=== PATIENT | male | born 1935 | race Caucasian/White ===

== ENCOUNTER 2020-01-26 07:43 | Emergency (ER) | payer MEDICARE, OTHER, SELFPAY ==
--- NOTE | ~2020-01-26 | XR_ITS ---
EXAMINATION: XR chest 1V portable EXAM DATE: 01/26/2020 08:39 INDICATION: Transient alteration of awareness. TECHNIQUE: Portable AP frontal chest x-ray was obtained. Comparison is made to prior examination from 02/04/2018. FINDINGS: There is a dual lead pacemaker/AICD seen with leads projecting over the expected locations of the right atrial appendage and right ventricle. The lungs are clear. There are no pleural effusio ns. The cardiomediastinal silhouette is within normal limits. There is no pneumothorax suspected. The bones and soft tissues are unremarkable. IMPRESSION: No acute cardiopulmonary findings. Reviewed, dictated and finalized at location A. CLE CONTROLS ENGINEER
--- NOTE | ~2020-01-26 | CT_ITS ---
EXAMINATION: CT brain wo con EXAM DATE: 01/26/2020 08:55 INDICATION: Unresponsive. TECHNIQUE: Spiral CT of the head was performed without contrast. Axial, coronal and sagittal images were reviewed. The dose-length product (DLP) for this examination was 681.00 mGy-cm. The exposure w as tailored according to patient size, and iterative reconstruction (ASIR) was used as additional dos e reduction technique. Comparison is made to prior examination from 02/04/2018. FINDINGS: There is no acute intraparenchymal hemorrhage. No evidence of intraparenchymal brain mass lesion. No evidence of acute infarction. Please note that initial head CT has limited sensitivity f or small or acute infarctions. There is mild periventricular and subcortical hypodensity, nonspecific but probably related to small vessel ischemic disease. There is mild prominence of the sulci and v entricles related to cerebral atrophy. There is intracranial carotid arteriosclerosis. There are n o extra-axial collections. There is no mass effect or midline shift. Patient has had left-sided ocu lar lens surgery. Soft tissue is unremarkable. The visualized sinuses and mastoid air cells are we ll aerated. IMPRESSION: 1. No acute intracranial findings. 2. Chronic age related findings. Reviewed, dictated and finalized at location A. HER OF THE HEARING IMPAIRED
[2020-01-26 07:42] VITALS: BP 148/76; PULSE 88; RESP 16; TEMP 36.3; O2SAT 100
--- NOTE | 2020-01-26 07:46 | ECG_ITS ---
Measurements Intervals [place] Rate: 83 P: 68 MT: 184 QRS: 71 QRSD: 133 T: -15 QT: 391 QTc: 461 Interpretive Statements SINUS RHYTHM RIGHT BUNDLE BRANCH BLOCK BORDERLINE ST-T WAVE ABNORMALITY- INFERIOR LEADS BASELINE ARTIFACT- I, II, III, AVR, AVL, AVF, V1-V3 ABNORMAL ECG Electronically Signed On 01-26-2020 17:08:10 SHOE DRESSER by Chris Syed D.O.
[2020-01-26 07:51] VITALS: PULSE 87
--- NOTE | 2020-01-26 08:03 | ED.GENADULT ---
HPI - General Adult General Chief complaint: Unspecified Stated complaint: had an unresponsive episode Time Seen by Provider: 01/26/20 07:44 Source: EMS Mode of arrival: EMS History of Present Illness HPI narrative: 84 years old white male came from a residential because of an episode of unresponsiveness, history of dementia, currently back is normal mental baseline. History of recurrent urinary tract infection Currently patient denying any complaints just want to eat and drink. Related Data Home Medications Medication Instructions Recorded Confirmed acetaminophen 1,000 mg PO Q6H PRN 01/26/20 calcium carbonate-vitamin D3 1 tablet PO BID 01/26/20 [Oyster Shell + D3] carbidopa-levodopa 0.5 tablet PO QID 01/26/20 cholecalciferol (vitamin D3) 10 mcg PO DAILY 01/26/20 donepezil 5 mg PO HS 01/26/20 latanoprost 1 drp OPHTHALMIC (EYE) DAILY 01/26/20 loperamide 2 mg PO QID PRN 01/26/20 melatonin 5 mg PO HS 01/26/20 montelukast 10 mg PO HS 01/26/20 nitrofurantoin mg PO 01/26/20 omeprazole 20 mg PO DAILY 01/26/20 quetiapine 12.5 mg PO BID PRN 01/26/20 quetiapine 50 mg PO HS 01/26/20 vitamin B complex [B 1 tablet PO DAILY 01/26/20 Complex-Vitamin B12] Allergies Allergy/AdvReac Type Severity Reaction Status Date / Time phenytoin Allergy Severe Unknown Verified 01/26/20 07:50 prochlorperazine Allergy Severe HALLUCINATIONS, Verified 02/04/18 01:34 DIZZINESS, CHEST PRESSURE, SLURRED SPEECH, doxycycline Allergy Mild Unknown Verified 01/26/20 07:50 diclofenac Allergy Unknown Unknown Verified 01/26/20 07:50 levofloxacin Allergy Unknown Unknown Verified 01/26/20 07:50 amoxicillin [From Augmentin] Allergy Unknown Verified 01/26/20 07:50 carbamazepine Allergy Unknown Verified 01/26/20 07:50 clavulanic acid Allergy Unknown Verified 01/26/20 07:50 [From Augmentin] gabapentin Allergy Unknown Verified 01/26/20 07:50 levetiracetam Allergy Unknown Verified 01/26/20 07:50 onion Allergy Unknown Verified 01/26/20 07:50 lorazepam AdvReac Mild CHEST Verified 02/04/18 01:34 PRESSURE, DIZZINESS, HALLUCINATIONS metoclopramide AdvReac Mild CHEST Verified 02/04/18 01:34 PRESSURE, DIZZINESS, HALLUCINATIONS POTASSIUM CLAVULANATE Allergy Mild Unknown Uncoded 01/26/20 07:51 AMOXICILLIN TRIHYDRATE Allergy Unknown Unknown Uncoded 01/26/20 07:51 PROCHLORPERAZINE EDISYLATE Allergy Unknown Unknown Uncoded 01/26/20 07:51 Review of Systems Review of Systems: ROS unobtainable: Yes unobtainable due to mental status Exam Narrative: Exam Narrative: General appearance: Well-developed, well-nourished Skin: Normal color Head: Normocephalic, nontraumatic Eyes: Clear conjunctiva ENT: Oropharynx normal, ears normal, nose normal Neck: Supple, nontender Chest and respiratory: Airway patent, no respiratory distress, no accessory muscle use Heart: Regular rate/rhythm Abdomen: Soft, nontender, no organomegaly, quiet bowel sounds Vascular: Normal peripheral pulses, normal capillary refill. Musculoskeletal: Normal range of motion, nontender back Neurologic: Alert and oriented to his name and the year only. Course Course Emergency Course: Stable Reevaluation(s) Reevaluation #1: Patient still asymptomatic, does not look in pain or distress, Patient's daughter told us that she preferred patient to go home if there is nothing acute in his blood work-up today because usually get delirium in the hospital. Date: 01/26/20 Time: 09:50 Vital Signs Vital signs: Vital Signs Temperature 36.3 C L 01/26/20 07:42 Pulse Rate 88 01/26/20 07:42 Respiratory Rate 16 01/26/20 07:42 Blood Pressure 148/76 H 01/26/20 07:4
[2020-01-26 08:07] LABS: Alveolar/Arterial O2 Gradient 5.7 mmHg; Base Excess ABG 1.1 mEq/l (+/-2.0); Fractional Inspired Oxygen 21 %; HCO3 ABG 25.8 mEq/l (22.0-26.0); Oxygen Content ABG 18.9 %vol (16.0-22.0); Oxygen Saturation ABG 97.4 % (95.0-100.0); Oxyhemoglobin 96.3 % THb (90.0-100.0); PCO2 ABG 40.9 mmHg (35.0-45.0); PO2 ABG 95.1 mmHg (80.0-100.0); PO2 FiO2 Ratio Arterial Blood 4.53 %; Total Hemoglobin 13.9 g/dL (12.0-18.0); pH ABG 7.417 (7.350-7.450)
[2020-01-26 08:08] LABS: Device ROOM AIR; Site Drawn RIGHT BRACHIAL
[2020-01-26 08:20] VITALS: BP 117/75; PULSE 83; RESP 14; O2SAT 100
[2020-01-26 08:40] LABS: Add Urine Microscopic? YES; Appearance Urine Cloudy (Clear); Bacteria Urine Trace /hpf; Bilirubin Urine Negative (Negative); Blood Urine Negative (Negative); Color Urine Yellow (Yellow); Glucose Urine UA Negative (Negative); Ketones Urine Trace mg/dL (Negative); Leukocyte Esterase Ur Trace LEU/UL (Negative); Nitrate Urine Negative (Negative); Protein Urine 1+ mg/dL (Negative); Specific Grav Ur 1.016 (1.001-1.035); WBC Urine 21-30 /hpf
[2020-01-26 08:43] LABS: Alanine Aminotransferase 7 U/L (4-50); Albumin Level 3.8 g/dL (3.5-5.1); Alkaline Phosphatase 71 U/L (38-126); Anion Gap 6 mmol/L (8-16); Aspartate Amino Transferase 26 U/L (17-59); Bilirubin,Total 0.9 mg/dL (0.2-1.3); Blood Urea Nitrogen 16 mg/dL (9-20); Calcium 9.3 mg/dL (8.4-10.2); Carbon Dioxide 29 mmol/L (22-30); Chloride 104 mmol/L (98-107); Estimated CRCL calculation 45 ml/min; Estimated Glomerular Filt Rate > 60; Glucose 92 mg/dL (75-110); Sodium 139 mmol/L (137-145)
[2020-01-26 08:49] LABS: INR 0.9
[2020-01-26 08:50] LABS: Partial Thromboplastin Time 20.2 SECONDS (22.3-36.8)
[2020-01-26 08:54] LABS: Troponin I 0.018 ng/mL (0.000-0.034)
[2020-01-26 09:01] VITALS: BP 108/70; PULSE 90; RESP 14; O2SAT 99
[2020-01-26 09:08] LABS: Basophils Percent Auto 0.5 % (0.2-1.2); Eosinophils Absolute Auto 0.1 K/mm3 (0-0.3); Eosinophils Percent Auto 1.8 % (0-4.4); Hematocrit 40.8 % (42.0-52.0); Hemoglobin 13.3 g/dL (14.0-18.0); Immature Granulocyte Absolute 0.02 K/mm3 (0.00-0.031); Immature Granulocyte Percent A 0.3 % (0-0.5); Lymphocytes Percent Auto 17.8 % (18.3-44.2); Mean Corpuscular HGB Conc 32.6 g/dl (32-36); Mean Corpuscular Hemoglobin 31.2 pg (26-34); Mean Corpuscular Volume 95.8 fl (80-100); Monocytes Absolute Auto 0.4 K/mm3 (0.1-0.6); Monocytes Percent Auto 6.8 % (2.6-8.5); Neutrophils Absolute Auto 4.5 K/mm3 (1.3-6.7); Neutrophils Percent Auto 72.8 % (45.5-73.1); Platelet Count Result 215 k/mm3 (150-375); Red Blood Count 4.26 M/mm3 (4.6-6.20); Red Cell Distribution Width 14.3 % (11.5-14.5); White Blood Count 6.2 K/mm3 (4.5-10.0)
[2020-01-26 09:45] VITALS: BP 108/70; PULSE 83; RESP 18; O2SAT 100
--- NOTE | 2020-01-26 09:48 | PC.NURSE ---
contacted [facility] about transferring patient home. eta [phone]
--- NOTE | 2020-01-26 10:09 | ED.GENADULT ---
HPI - General Adult General Chief complaint: Unspecified Stated complaint: had an unresponsive episode Time Seen by Provider: 01/26/20 07:44 Source: EMS Mode of arrival: EMS Related Data Home Medications Medication Instructions Recorded Confirmed acetaminophen 1,000 mg PO Q6H PRN 01/26/20 calcium carbonate-vitamin D3 1 tablet PO BID 01/26/20 [Oyster Shell + D3] carbidopa-levodopa 0.5 tablet PO QID 01/26/20 cholecalciferol (vitamin D3) 10 mcg PO DAILY 01/26/20 donepezil 5 mg PO HS 01/26/20 latanoprost 1 drp OPHTHALMIC (EYE) DAILY 01/26/20 loperamide 2 mg PO QID PRN 01/26/20 melatonin 5 mg PO HS 01/26/20 montelukast 10 mg PO HS 01/26/20 nitrofurantoin mg PO 01/26/20 omeprazole 20 mg PO DAILY 01/26/20 quetiapine 12.5 mg PO BID PRN 01/26/20 quetiapine 50 mg PO HS 01/26/20 vitamin B complex [B 1 tablet PO DAILY 01/26/20 Complex-Vitamin B12] Allergies Allergy/AdvReac Type Severity Reaction Status Date / Time phenytoin Allergy Severe Unknown Verified 01/26/20 07:50 prochlorperazine Allergy Severe HALLUCINATIONS, Verified 02/04/18 01:34 DIZZINESS, CHEST PRESSURE, SLURRED SPEECH, doxycycline Allergy Mild Unknown Verified 01/26/20 07:50 diclofenac Allergy Unknown Unknown Verified 01/26/20 07:50 levofloxacin Allergy Unknown Unknown Verified 01/26/20 07:50 amoxicillin [From Augmentin] Allergy Unknown Verified 01/26/20 07:50 carbamazepine Allergy Unknown Verified 01/26/20 07:50 clavulanic acid Allergy Unknown Verified 01/26/20 07:50 [From Augmentin] gabapentin Allergy Unknown Verified 01/26/20 07:50 levetiracetam Allergy Unknown Verified 01/26/20 07:50 onion Allergy Unknown Verified 01/26/20 07:50 lorazepam AdvReac Mild CHEST Verified 02/04/18 01:34 PRESSURE, DIZZINESS, HALLUCINATIONS metoclopramide AdvReac Mild CHEST Verified 02/04/18 01:34 PRESSURE, DIZZINESS, HALLUCINATIONS Course Course Emergency Course: Patient is already on Macrobid for urinary tract infection Vital Signs Vital signs: Vital Signs Temperature 36.3 C L 01/26/20 07:42 Pulse Rate 88 01/26/20 07:42 Respiratory Rate 16 01/26/20 07:42 Blood Pressure 148/76 H 01/26/20 07:42 Pulse Oximetry 100 01/26/20 07:42 Temperature 36.3 C L 01/26/20 07:42 Pulse Rate 83 01/26/20 09:45 Respiratory Rate 18 01/26/20 09:45 Blood Pressure 108/70 01/26/20 09:45 Pulse Oximetry 100 01/26/20 09:45 Medical Decision Making Vital Signs Vital Signs: Vital Signs Temperature 36.3 C L 01/26/20 07:42 Pulse Rate 88 01/26/20 07:42 Respiratory Rate 16 01/26/20 07:42 Blood Pressure 148/76 H 01/26/20 07:42 Pulse Oximetry 100 01/26/20 07:42 Temperature 36.3 C L 01/26/20 07:42 Pulse Rate 83 01/26/20 09:45 Respiratory Rate 18 01/26/20 09:45 Blood Pressure 108/70 01/26/20 09:45 Pulse Oximetry 100 01/26/20 09:45 Lab Data Result diagrams: 01/26/20 08:59 01/26/20 08:21 Labs: Lab Results 01/26/20 01/26/20 01/26/20 Range/Units 08:21 08:22 08:22 WBC (4.5-10.0) K/mm3 RBC (4.6-6.20) M/mm3 Hgb (14.0-18.0) g/dL Hct (42.0-52.0) % MCV (80-100) fl MCH (26-34) pg MCHC (32-36) g/dl RDW (11.5-14.5) % Plt Count (150-375) k/mm3 MPV (7.4-10.4) fl Immature Gran % (Auto) (0-0.5) % Neut % (Auto) (45.5-73.1) % Lymph % (Auto) (18.3-44.2) % [place] % (Auto) (2.6-8.5) % Eos % (Auto) (0-4.4) % Baso % (Auto) (0.2-1.2) % Lymph # (Auto) (0.9-3.2) K/mm3 [place] # (Auto) (0.1-0.6) K/mm3 Eos # (Auto) (0-0.3) K/mm3 Baso # (Auto) (0.0-0.1) K/mm3 Abs Immat Gran (auto) (0.00-0.031) K/mm3 Absolute Neuts (auto) (1.3-6.7) K/mm3 Absolute Nucleated RBC (0.0-0.012) K/mm3 Nucleated RBC % (0.0-0.2) % PT 13.0 (11.1-14.7) Seconds INR 0.9 APTT 20.2 L (22.3-36.8) SECONDS Sodium 139 (137-145) mmol/L
--- NOTE | 2020-01-26 10:14 | PC.NURSE ---
[facility] has arrived
--- NOTE | 2020-01-26 10:23 | PC.NURSE ---
Patient transferred to [facility] via [facility] at this time.
== END 2020-01-26 10:23 ==
PROVIDERS: Emergency Provider Emergency Medicine; PCP Family Medicine Adolescent Medicine
DX: N39.0 Urinary tract infection, site not specified (principal); F03.90 Unspecified dementia, unspecified severity, without behavioral disturbance, psychotic disturbance, mood disturbance, and anxiety; I45.10 Unspecified right bundle-branch block; R94.31 Abnormal electrocardiogram [ECG] [EKG]
CPT/HCPCS: 36415; 36600; 51701; 70450; 71045; 80053; 81001; 82805; 84484; 85025; 85610; 85730; 87040; 87086; 93005; 99284

== ENCOUNTER 2020-02-11 03:34 | Emergency (ER) | payer MEDICARE, OTHER, SELFPAY ==
[2020-02-11] VITALS (14 sets, daily range): BP systolic 109–155; BP diastolic 58–86; PULSE 78–98; RESP 14–98; TEMP 36.4; O2SAT 97–100
--- NOTE | ~2020-02-11 | XR_ITS ---
EXAMINATION: XR hip LT 2V w AP pelvis DATE: 02/11/2020 05:12 INDICATION: Left hip pain post fall TECHNIQUE: Anteroposterior view of the pelvis and anteroposterior and frog leg lateral views of the l eft hip were obtained. COMPARISON: None. FINDINGS: Alignment is normal. No fracture. 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 IMPRESSION: 1. 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 No acute osseous abnormality. Reviewed, dictated and finalized at location A. OFFICE MARKUP CLERK IMPRESSION: 1. 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 No acute osseous abnormalit y.
--- NOTE | ~2020-02-11 | XR_ITS ---
EXAMINATION: XR elbow LT min 3V DATE: 02/11/2020 05:12 INDICATION: Left elbow pain post fall TECHNIQUE: Anteroposterior, two oblique and lateral views of the left elbow were obtained. COMPARISON: 02/04/2018 FINDINGS: Alignment is normal. No fracture or joint effusion. Moderate left elbow osteoarthritis. Soft tissues are unremarkable. IMPRESSION: 1. 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 No acute osseous adenopathy. Reviewed, dictated and finalized at location A. UCT MANAGEMENT INTERN
--- NOTE | ~2020-02-11 | CT_ITS ---
EXAMINATION: CT brain wo con DATE: 02/11/2020 04:05 INDICATION: Syncope. TECHNIQUE: Computed tomography (CT) of the head was performed without intravenous contrast. The mA wa s adjusted according to patient size. Iterative reconstruction technique was employed. The dose-lengt h product was 605.33 mGy-cm. COMPARISON: Head CT 01/26/2020 FINDINGS: There is diffuse brain volume loss. There are scattered areas of low attenuation in the cer ebral white matter, which is within normal limits for the patient's age. There is no intracranial hem orrhage, acute infarction, or abnormal intracranial mass lesion. The ventricles are normal in size. T he paranasal sinuses are clear. There are likely changes of left ocular lens replacement surgery. The re are trace bilateral mastoid effusions. IMPRESSION: 1. Normal aging brain. Reviewed, dictated and finalized at location B. TOR IMPRESSION: 1. Normal aging brain.
--- NOTE | ~2020-02-11 | XR_ITS ---
EXAMINATION: XR chest 1V DATE: 02/11/2020 05:12 INDICATION: Fall with syncopal episode. TECHNIQUE: frontal view of the chest was obtained. COMPARISON: Chest radiograph dated 01/26/2020 FINDINGS: Skinfold projects over the lateral left midlung zone. No airspace opacities, pulmonary edema, pleural effusion or pneumothorax. The cardiomediastinal silhouette is normal. Dual lead pacemaker seen with leads projecting over the expected locations of the right atrium and right ventricle. IMPRESSION: 1. No acute cardiopulmonary disease. Reviewed, dictated and finalized at location A. NEER SPECIALIST
--- NOTE | ~2020-02-11 | XR_ITS ---
EXAMINATION: XR shoulder LT min 2V DATE: 02/11/2020 05:12 INDICATION: Left shoulder pain post fall TECHNIQUE: AP internally and externally rotated, AP oblique externally rotated, axillary and transsca pular Y views of the left shoulder were obtained. COMPARISON: None FINDINGS: Normal alignment. No fracture.Mild glenohumeral and acromioclavicular osteoarthritis. Soft tissues are unremarkable. Visualized portions of the left lung are clear. Partially visualized dual lead card iac pacemaker projects over the anterior left chest. IMPRESSION: No acute osseous abnormality. Reviewed, dictated and finalized at location A. SUIT GLUER
--- NOTE | 2020-02-11 03:44 | ECG_ITS ---
Measurements Intervals [place] Rate: 87 P: 53 WA: 214 QRS: 77 QRSD: 142 T: 4 QT: 370 QTc: 446 Interpretive Statements SINUS RHYTHM WITH FIRST DEGREE AV BLOCK RIGHT BUNDLE BRANCH BLOCK BASELINE ARTIFACT- I, II, III, AVR, AVL, AVF, V2 ABNORMAL ECG Electronically Signed On 02-11-2020 6:45:18 BULK PLANT SUPERVISOR by Chris Syed D.O.
--- NOTE | 2020-02-11 03:56 | PC.NURSE ---
Pt. to CT
[2020-02-11] MEDS: SODIUM CHLORIDE 0.9% IV 1,000 ML 999 ML IV CONT ×2 (04:00→06:44)
[2020-02-11 04:13] LABS: Basophils Percent Auto 0.7 % (0.2-1.2); Eosinophils Absolute Auto 0.1 K/mm3 (0-0.3); Hematocrit 39.8 % (42.0-52.0); Hemoglobin 13.4 g/dL (14.0-18.0); Immature Granulocyte Absolute 0.02 K/mm3 (0.00-0.031); Immature Granulocyte Percent A 0.3 % (0-0.5); Lymphocytes Absolute Auto 1.46 K/mm3 (0.9-3.2); Lymphocytes Percent Auto 23.7 % (18.3-44.2); Mean Corpuscular HGB Conc 33.7 g/dl (32-36); Mean Corpuscular Hemoglobin 31.3 pg (26-34); Mean Platelet Volume 9.4 fl (7.4-10.4); Monocytes Absolute Auto 0.5 K/mm3 (0.1-0.6); Monocytes Percent Auto 7.8 % (2.6-8.5); Neutrophils Absolute Auto 4.1 K/mm3 (1.3-6.7); Neutrophils Percent Auto 66.5 % (45.5-73.1); Platelet Count Result 240 k/mm3 (150-375); Red Blood Count 4.28 M/mm3 (4.6-6.20); Red Cell Distribution Width 13.9 % (11.5-14.5); White Blood Count 6.2 K/mm3 (4.5-10.0)
[2020-02-11 04:16] LABS: Prothrombin Time 13.3 Seconds (11.1-14.7)
[2020-02-11 04:17] LABS: Partial Thromboplastin Time 29.9 SECONDS (22.3-36.8)
[2020-02-11 04:19] LABS: Alanine Aminotransferase 6 U/L (4-50); Albumin Level 3.7 g/dL (3.5-5.1); Alkaline Phosphatase 77 U/L (38-126); Anion Gap 6 mmol/L (8-16); Aspartate Amino Transferase 21 U/L (17-59); Bilirubin,Total 0.7 mg/dL (0.2-1.3); Blood Urea Nitrogen 17 mg/dL (9-20); Calcium 10.1 mg/dL (8.4-10.2); Carbon Dioxide 27 mmol/L (22-30); Chloride 103 mmol/L (98-107); Estimated CRCL calculation 40 ml/min; Estimated Glomerular Filt Rate > 60; Glucose 97 mg/dL (75-110); Sodium 136 mmol/L (137-145)
[2020-02-11 04:31] LABS: Troponin I 0.026 ng/mL (0.000-0.034)
[2020-02-11 04:55] LABS: Add Urine Microscopic? YES; Appearance Urine Clear (Clear); Bilirubin Urine Negative (Negative); Blood Urine Negative (Negative); Color Urine Yellow (Yellow); Glucose Urine UA Negative (Negative); Ketones Urine Trace mg/dL (Negative); Leukocyte Esterase Ur 1+ LEU/UL (Negative); Nitrate Urine Negative (Negative); Protein Urine Negative (Negative); Specific Grav Ur 1.016 (1.001-1.035); WBC Urine 51-75 /hpf
--- NOTE | 2020-02-11 06:13 | ED.SYNCOPE ---
HPI - Syncope General Chief Complaint: Syncope Stated Complaint: FALL/SYNCOPE Time Seen by Provider: 02/11/20 03:41 Source: patient and EMS Mode of arrival: EMS Limitations: dementia History of Present Illness HPI narrative: This patient is an 84 year old male with history of dementia, parkinson who presents from [facility] for evaluation of syncope vs fall. EMS states patient was witness to stand up and then fall foward. They states the DIPLOMA MAKER reported patient was talking and then stopped talking. He fell forward, and they believe he passed out. EMS states patient was able to speak once he was on the ground. Patient can not tell history of fall. He complained of left shoulder pain and left hip pain, but he states it has improved. He denies chest pain, sob, nausea, vomiting , dizziness or headache. Related Data Home Medications Medication Instructions Recorded Confirmed acetaminophen 1,000 mg PO Q6H PRN 01/26/20 calcium carbonate-vitamin D3 1 tablet PO BID 01/26/20 [Oyster Shell + D3] carbidopa-levodopa 0.5 tablet PO QID 01/26/20 cholecalciferol (vitamin D3) 10 mcg PO DAILY 01/26/20 donepezil 5 mg PO HS 01/26/20 latanoprost 1 drp OPHTHALMIC (EYE) DAILY 01/26/20 loperamide 2 mg PO QID PRN 01/26/20 melatonin 5 mg PO HS 01/26/20 montelukast 10 mg PO HS 01/26/20 nitrofurantoin mg PO 01/26/20 omeprazole 20 mg PO DAILY 01/26/20 quetiapine 12.5 mg PO BID PRN 01/26/20 quetiapine 50 mg PO HS 01/26/20 vitamin B complex [B 1 tablet PO DAILY 01/26/20 Complex-Vitamin B12] Allergies Allergy/AdvReac Type Severity Reaction Status Date / Time phenytoin Allergy Severe Unknown Verified 02/11/20 03:40 prochlorperazine Allergy Severe HALLUCINATIONS, Verified 02/11/20 03:40 DIZZINESS, CHEST PRESSURE, SLURRED SPEECH, doxycycline Allergy Mild Unknown Verified 02/11/20 03:40 diclofenac Allergy Unknown Unknown Verified 02/11/20 03:40 levofloxacin Allergy Unknown Unknown Verified 02/11/20 03:40 amoxicillin [From Augmentin] Allergy Unknown Verified 02/11/20 03:40 carbamazepine Allergy Unknown Verified 02/11/20 03:40 clavulanic acid Allergy Unknown Verified 02/11/20 03:40 [From Augmentin] gabapentin Allergy Unknown Verified 02/11/20 03:40 levetiracetam Allergy Unknown Verified 02/11/20 03:40 onion Allergy Unknown Verified 02/11/20 03:40 lorazepam AdvReac Mild CHEST Verified 02/11/20 03:40 PRESSURE, DIZZINESS, HALLUCINATIONS metoclopramide AdvReac Mild CHEST Verified 02/11/20 03:40 PRESSURE, DIZZINESS, HALLUCINATIONS Review of Systems Review of Systems: All systems reviewed & are unremarkable except as noted in HPI and below Constitutional: Constitutional: Denies chills and Denies fever(s) Cardiovascular: Cardiovascular: Denies chest pain Respiratory: Respiratory: Denies cough and Denies dyspnea Gastrointestinal: Gastrointestinal: Denies abdominal pain and Denies nausea PMFSH Past Medical History Medical History (Updated 02/12/20 @ 00:00 by John Ramos) Cataract Dementia Parkinson disease Peyronie's disease Social History Social History (Updated 02/11/20 @ 06:20 by Marcela Curry MD) Smoking status: Never smoker Exam Const: General: no acute distress and alert HENMT: Head: normocephalic General nose exam: No nasal polyps present Mouth: Yes Normal oral and palatal mucosa present, Yes lip normal, Yes oropharynx normal and Yes moist mucous membranes Eyes: EOM: EOMs intact bilaterally Chest: Chest palpation & inspection: normal inspection of the chest Resp: Effort & Inspection: normal respiratory effort and no retractions Auscultation: clear to auscultation bilaterally Cardio: Rate: regular rate Rhythm: regular rhythm GI: GI Palp: Yes Soft to palpation, No Tenderness to palpation present (GI) and No Guarding due to palpation present (GI) Auscultation: normal bowel sounds Skin: Other: right eye brow superfic
--- NOTE | 2020-02-11 08:20 | PC.NURSE ---
To [facility] via [facility].
== END 2020-02-11 08:20 ==
PROVIDERS: Emergency Provider General Practice; PCP Family Medicine Adolescent Medicine
DX: I95.1 Orthostatic hypotension (principal); M25.512 Pain in left shoulder; M25.552 Pain in left hip; F03.90 Unspecified dementia, unspecified severity, without behavioral disturbance, psychotic disturbance, mood disturbance, and anxiety; G20 Parkinson's disease; H26.9 Unspecified cataract; I44.0 Atrioventricular block, first degree; I45.10 Unspecified right bundle-branch block; M19.022 Primary osteoarthritis, left elbow; M16.12 Unilateral primary osteoarthritis, left hip; R82.998 Other abnormal findings in urine
CPT/HCPCS: 36415; 51701; 70450; 71045; 73030; 73080; 73502; 80053; 81001; 83735; 84484; 85025; 85610; 85730; 87086; 93005; 96361; 96365; 99284; J0696; J7030

== ENCOUNTER 2020-03-23 18:55 | Inpatient (IN) | payer MEDICARE, OTHER, SELFPAY ==
[2020-03-23] VITALS (7 sets, daily range): BP systolic 112–168; BP diastolic 73–118; PULSE 70–89; RESP 17–24; TEMP 35.6–36.7; O2SAT 98–100; BMI 21.7
--- NOTE | ~2020-03-23 | XR_ITS ---
EXAMINATION: XR chest 1V portable INDICATION: Weakness TECHNIQUE: Portable AP chest at 2043 hours COMPARISON: 02/11/2020 FINDINGS: The lungs are free of acute opacities. There is no pleural effusion or pneumothorax. The ca rdiomediastinal silhouette is normal. A dual-lead cardiac pacemaker of the left chest wall ends with leads in expected locations. IMPRESSION: 1. No acute cardiopulmonary abnormality. Reviewed, dictated and finalized at location A. FEEDER
--- NOTE | ~2020-03-23 | CT_ITS ---
EXAMINATION: CT brain wo con INDICATION: Transient alteration of awareness COMPARISON: 02/11/2020 TECHNIQUE: Standard unenhanced head CT. The dose-length product (DLP) was 908.00 mGy-cm. The mA was a djusted according to patient size. Iterative reconstruction technique was employed. FINDINGS: There is no acute intraparenchymal hemorrhage. No evidence of mass lesion. No evidence of a cute infarction. There is moderate periventricular and subcortical hypodensity probably related to sm all vessel ischemic disease. There is moderate prominence of the sulci and ventricles related to cere bral atrophy. Intracranial calcified cerebral atherosclerosis is noted. There are no extra-axial kelsy ections. There is no mass effect or midline shift. Changes in the globes are likely from ocular lens surgery. IMPRESSION: 1. No acute intracranial abnormality. 2. Age related findings. Reviewed, dictated and finalized at location A. VABLE PROSTHODONTIST
--- NOTE | 2020-03-23 18:57 | ED.GENADULT ---
HPI - General Adult General Chief complaint: Altered Mental Status Stated complaint: altered mental low o2 Time Seen by Provider: 03/23/20 18:57 Source: EMS Mode of arrival: EMS Limitations: dementia History of Present Illness HPI narrative: 84 years old white male came to the emergency room by ambulance because of gradual increase lethargy over the last 3 days. Currently patient is unresponsive for the last 12 hours. Normally patient is awake, carries some conversation, but have history of Lewy body dementia. Patient was tested negative for Covid infection 3 days ago, according to skilled nursing staff that the patient have no fever, chills, nausea, vomiting, shortness of breath, coughing. Patient did not eating or drinking well over the last few days. Patient is DNR discussed with his son/Tito. Patient on BiPAP at night. Patient is allergic to Toradol and aspirin. Related Data Home Medications Medication Instructions Recorded Confirmed acetaminophen 1,000 mg PO Q6H PRN 01/26/20 calcium carbonate-vitamin D3 1 tablet PO BID 01/26/20 [Oyster Shell + D3] carbidopa-levodopa 0.5 tablet PO QID 01/26/20 cholecalciferol (vitamin D3) 10 mcg PO DAILY 01/26/20 donepezil 5 mg PO HS 01/26/20 latanoprost 1 drp OPHTHALMIC (EYE) DAILY 01/26/20 loperamide 2 mg PO QID PRN 01/26/20 melatonin 5 mg PO HS 01/26/20 montelukast 10 mg PO HS 01/26/20 nitrofurantoin mg PO 01/26/20 omeprazole 20 mg PO DAILY 01/26/20 quetiapine 12.5 mg PO BID PRN 01/26/20 quetiapine 50 mg PO HS 01/26/20 vitamin B complex [B 1 tablet PO DAILY 01/26/20 Complex-Vitamin B12] Allergies Allergy/AdvReac Type Severity Reaction Status Date / Time phenytoin Allergy Severe Unknown Verified 02/11/20 03:40 prochlorperazine Allergy Severe HALLUCINATIONS, Verified 02/11/20 03:40 DIZZINESS, CHEST PRESSURE, SLURRED SPEECH, doxycycline Allergy Mild Unknown Verified 02/11/20 03:40 diclofenac Allergy Unknown Unknown Verified 02/11/20 03:40 levofloxacin Allergy Unknown Unknown Verified 02/11/20 03:40 amoxicillin [From Augmentin] Allergy Unknown Verified 02/11/20 03:40 carbamazepine Allergy Unknown Verified 02/11/20 03:40 clavulanic acid Allergy Unknown Verified 02/11/20 03:40 [From Augmentin] gabapentin Allergy Unknown Verified 02/11/20 03:40 levetiracetam Allergy Unknown Verified 02/11/20 03:40 onion Allergy Unknown Verified 02/11/20 03:40 lorazepam AdvReac Mild CHEST Verified 02/11/20 03:40 PRESSURE, DIZZINESS, HALLUCINATIONS metoclopramide AdvReac Mild CHEST Verified 02/11/20 03:40 PRESSURE, DIZZINESS, HALLUCINATIONS Review of Systems Review of Systems: ROS unobtainable: Yes unobtainable due to medical condition and unobtainable due to mental status PMFSH Past Medical History Medical History Cataract Dementia Parkinson disease Peyronie's disease Social History Social History Smoking status: Never smoker Gender identity (if verbalized by the patient): Male Exam Narrative: Exam Narrative: General appearance: Well-developed, well-nourished, and responsive Skin: Normal color Head: Normocephalic, nontraumatic Eyes: Clear conjunctiva ENT: Dry oral cavity Neck: Supple, nontender Chest and respiratory: Airway patent, no respiratory distress, no accessory muscle use Heart: Regular rate/rhythm Abdomen: Soft, nontender, no organomegaly, quiet bowel sounds Vascular: Normal peripheral pulses, normal capillary refill. Neurologic: Responsive to painful stimulation by withdrawing Course Course Emergency
--- NOTE | 2020-03-23 19:02 | ECG_ITS ---
Measurements Intervals [place] Rate: 88 P: 65 NM: 185 QRS: 79 QRSD: 122 T: 3 QT: 389 QTc: 473 Interpretive Statements SINUS RHYTHM RIGHT BUNDLE BRANCH BLOCK BASELINE ARTIFACT- I, II, III, AVR, AVL, AVF, V1-V6 ABNORMAL ECG Electronically Signed On 03-23-2020 21:43:40 EXECUTIVE OFFICER by Chris Syed D.O.
[2020-03-23 19:05] LABS: Glucose Point of Care 102 (65-105)
[2020-03-23 19:21] LABS: Alveolar/Arterial O2 Gradient 8.9 mmHg; Base Excess ABG -0.5 mEq/l (+/-2.0); Device BIPAP; Fractional Inspired Oxygen 25 %; HCO3 ABG 22.9 mEq/l (22.0-26.0); Modified Allen's Test Pass; Oxygen Saturation ABG 98.7 % (95.0-100.0); Oxyhemoglobin 97.3 % THb (90.0-100.0); PCO2 ABG 34.2 mmHg (35.0-45.0); PO2 ABG 128.7 mmHg (80.0-100.0); PO2 FiO2 Ratio Arterial Blood 5.15 %; Site Drawn RIGHT RADIAL; Total Hemoglobin 14.5 g/dL (12.0-18.0); pH ABG 7.444 (7.350-7.450)
[2020-03-23 19:22] LABS: Expiratory Pressure 5 cmH2O; Inspiratory Pressure 15 cmH2O
[2020-03-23 19:26] LABS: Basophils Percent Auto 0.4 % (0.2-1.2); Eosinophils Percent Auto 0.3 % (0-4.4); Hematocrit 41.8 % (42.0-52.0); Hemoglobin 13.6 g/dL (14.0-18.0); Immature Granulocyte Absolute 0.03 K/mm3 (0.00-0.031); Immature Granulocyte Percent A 0.4 % (0-0.5); Lymphocytes Absolute Auto 0.94 K/mm3 (0.9-3.2); Lymphocytes Percent Auto 12.4 % (18.3-44.2); Mean Corpuscular HGB Conc 32.5 g/dl (32-36); Mean Corpuscular Hemoglobin 30.2 pg (26-34); Mean Corpuscular Volume 92.9 fl (80-100); Mean Platelet Volume 9.9 fl (7.4-10.4); Monocytes Absolute Auto 0.4 K/mm3 (0.1-0.6); Monocytes Percent Auto 5.1 % (2.6-8.5); Neutrophils Absolute Auto 6.2 K/mm3 (1.3-6.7); Neutrophils Percent Auto 81.4 % (45.5-73.1); Platelet Count Result 280 k/mm3 (150-375); Red Cell Distribution Width 14.1 % (11.5-14.5); White Blood Count 7.6 K/mm3 (4.5-10.0)
[2020-03-23 19:36] LABS: Partial Thromboplastin Time 28.8 SECONDS (22.3-36.8); Prothrombin Time 13.7 Seconds (11.1-14.7)
[2020-03-23] MEDS: SODIUM CHLORIDE 0.9% IV 1,000 ML 999 ML IV CONT (19:41)
[2020-03-23 19:49] LABS: Lactic Acid Reflex 0.8 mmol/L (0.7-2.1)
[2020-03-23 19:52] LABS: Alanine Aminotransferase 18 U/L (4-50); Albumin Level 3.9 g/dL (3.5-5.1); Alkaline Phosphatase 82 U/L (38-126); Anion Gap 5 mmol/L (8-16); Aspartate Amino Transferase 26 U/L (17-59); Bilirubin,Total 0.8 mg/dL (0.2-1.3); Blood Urea Nitrogen 35 mg/dL (9-20); CRP 1.8 mg/dL (<1.0); Calcium 9.6 mg/dL (8.4-10.2); Carbon Dioxide 27 mmol/L (22-30); Chloride 115 mmol/L (98-107); Estimated CRCL calculation 46 ml/min; Estimated Glomerular Filt Rate > 60; Glucose 118 mg/dL (75-110); Potassium 4.1 mmol/L (3.4-5.0); Sodium 147 mmol/L (137-145)
[2020-03-23 20:05] LABS: Troponin I 0.074 ng/mL (0.000-0.034)
[2020-03-23 20:17] LABS: Add Urine Microscopic? YES; Appearance Urine Clear (Clear); Bilirubin Urine Negative (Negative); Blood Urine 3+ (Negative); Color Urine Yellow (Yellow); Glucose Urine UA Negative (Negative); Ketones Urine Trace mg/dL (Negative); Leukocyte Esterase Ur Negative LEU/UL (Negative); Mucus Urine Few /lpf; Nitrate Urine Negative (Negative); Protein Urine 1+ mg/dL (Negative); RBC Urine >75 /hpf (0-2); Specific Grav Ur 1.025 (1.001-1.035); Squamous Epithelial Cell Urine Rare /hpf (Few); WBC Urine 0-3 /hpf
[2020-03-23] MEDS: AZTREONAM 1 GM in DEXTROSE 5% IN WATER 50 ML IVPB (22:49)
[2020-03-23] MEDS: ENOXAPARIN 80 MG/0.8 ML SYRINGE 70 MG SUB-Q (22:56)
--- NOTE | 2020-03-23 23:29 | ADMGEN ---
This patient, Santos Leon, was admitted to IMU Room 214-01 at 2320. Patient/family oriented to hospital policies and general routines including ID bracelet, bed and alarms, visiting hours, pain management, procedures, bathroom and other care routines, personal items, smoking policy, room service/diet, and visiting hours. Information on how to activate the Rapid Response Team has been discussed. Patient/Family are encouraged to report perceived risks to care and to ask questions if they do not understand what they are told or what they should do.
[2020-03-24] VITALS (14 sets, daily range): BP systolic 108–182; BP diastolic 56–86; PULSE 69–101; RESP 16–18; TEMP 36.1–36.7; O2SAT 96–100; BMI 18.7
--- NOTE | 2020-03-24 00:04 | PM.IMHP ---
H&P: HPI History of Present Illness Date/Time: 03/23/20 23:00 hrs Chief Complaint: Lethargy and altered mental status Narrative: This is an 84 year old male with known dementia and Parkinson's disease who presented to the hospital with a complaint of lethargy for the past 3 days. The patient has been poorly responsive for over 12 hours now and long term staff had reported that the patient is normally awake and can usually carry a conversation. He has not eaten or drank any fluids of the past couple of days. The patient was evaluated in the ER tonight and routine labs demonstrated a mildly elevated troponin of 0.074 and hypernatremia with a serum sodium of 147. CT brain was unremarkable for any acute pathology. On my encounter with the patient tonight is unresponsive to verbal stimuli and only opens his eyes to painful stimuli. No other history is obtainable from the patient. The patient was swabbed for COVID-19 in the ER tonight. Review of Systems Review of Systems: ROS unobtainable: Yes unobtainable due to mental status PMFSH Past Medical History Medical History Cataract Dementia Parkinson disease Peyronie's disease Family History Family History Other Unknown family medical history Social History Social History Smoking status: Never smoker Alcohol intake: unknown Substance use: unknown Gender identity (if verbalized by the patient): Male Spiritual care concerns: No Comments Past histories are unobtainable from the patient secondary to his acute altered mental status. Meds Home Medications and Allergies Home Medications Medication Instructions Recorded Confirmed Type acetaminophen 1,000 mg PO Q6H PRN 01/26/20 03/23/20 History calcium carbonate-vitamin D3 1 tablet PO BID 01/26/20 03/23/20 History [Oyster Shell + D3] carbidopa-levodopa 0.5 tablet PO QID 01/26/20 03/23/20 History cholecalciferol (vitamin D3) 10 mcg PO DAILY 01/26/20 03/23/20 History donepezil 5 mg PO HS 01/26/20 03/23/20 History latanoprost 1 drp OPHTHALMIC (EYE) DAILY 01/26/20 03/23/20 History loperamide 2 mg PO QID PRN 01/26/20 03/23/20 History melatonin 5 mg PO HS 01/26/20 03/23/20 History montelukast 10 mg PO HS 01/26/20 03/23/20 History nitrofurantoin 50 mg PO DAILY 01/26/20 03/23/20 History omeprazole 20 mg PO DAILY 01/26/20 03/23/20 History quetiapine 12.5 mg PO BID PRN 01/26/20 03/23/20 History quetiapine 50 mg PO HS 01/26/20 03/23/20 History vitamin B complex [B 1 tablet PO DAILY 01/26/20 03/23/20 History Complex-Vitamin B12] fludrocortisone 0.1 mg PO DAILY #30 tablet 02/11/20 03/23/20 Rx Allergies Allergy/AdvReac Type Severity Reaction Status Date / Time phenytoin Allergy Severe Unknown Verified 02/11/20 03:40 prochlorperazine Allergy Severe HALLUCINATIONS, Verified 02/11/20 03:40 DIZZINESS, CHEST PRESSURE, SLURRED SPEECH, doxycycline Allergy Mild Unknown Verified 02/11/20 03:40 diclofenac Allergy Unknown Unknown Verified 02/11/20 03:40 levofloxacin Allergy Unknown Unknown Verified 02/11/20 03:40 amoxicillin [From Augmentin] Allergy Unknown Verified 02/11/20 03:40 carbamazepine Allergy Unknown Verified 02/11/20 03:40 clavulanic acid Allergy Unknown Verified 02/11/20 03:40 [From Augmentin] gabapentin Allergy Unknown Verified 02/11/20 03:40 levetiracetam Allergy Unknown Verified 02/11/20 03:40 onion Allergy Unknown Verified 02/11/20 03:40 lorazepam AdvReac Mild CHEST Verified 02/11/20 03:40 PRESSURE, DIZZINESS, HALLUCINATIONS metoclopramide AdvReac Mild CHEST Verified 02/11/20 03:40 PRESSURE, DIZZINESS, HALLUCINATIONS Vital Signs Vital Signs - 24 hr 03/23/20 18:56 03/23/20 19:26 03/23/20 19:45 Temperature 35.6 C L Pulse Rate 89 78 Respiratory Rate 17 24 H 22 H Blood P
[2020-03-24 02:06] LABS: Troponin I 0.091 ng/mL (0.000-0.034)
[2020-03-24 05:20] LABS: Basophils Percent Auto 0.4 % (0.2-1.2); Eosinophils Absolute Auto 0.1 K/mm3 (0-0.3); Eosinophils Percent Auto 0.7 % (0-4.4); Hematocrit 38.4 % (42.0-52.0); Hemoglobin 12.5 g/dL (14.0-18.0); Immature Granulocyte Absolute 0.03 K/mm3 (0.00-0.031); Immature Granulocyte Percent A 0.4 % (0-0.5); Lymphocytes Percent Auto 18.5 % (18.3-44.2); Mean Corpuscular HGB Conc 32.6 g/dl (32-36); Mean Corpuscular Hemoglobin 30.3 pg (26-34); Mean Corpuscular Volume 93.2 fl (80-100); Mean Platelet Volume 9.7 fl (7.4-10.4); Monocytes Absolute Auto 0.5 K/mm3 (0.1-0.6); Monocytes Percent Auto 7.5 % (2.6-8.5); Neutrophils Absolute Auto 5.1 K/mm3 (1.3-6.7); Neutrophils Percent Auto 72.5 % (45.5-73.1); Platelet Count Result 247 k/mm3 (150-375); Red Blood Count 4.12 M/mm3 (4.6-6.20)
[2020-03-24 05:34] LABS: Anion Gap 3 mmol/L (8-16); Blood Urea Nitrogen 27 mg/dL (9-20); Calcium 9.1 mg/dL (8.4-10.2); Carbon Dioxide 28 mmol/L (22-30); Chloride 116 mmol/L (98-107); Estimated CRCL calculation 40 ml/min; Estimated Glomerular Filt Rate > 60; Glucose 96 mg/dL (75-110); Potassium 3.5 mmol/L (3.4-5.0); Sodium 147 mmol/L (137-145)
[2020-03-24 05:49] LABS: Troponin I 0.095 ng/mL (0.000-0.034)
[2020-03-24] MEDS: SODIUM CHLORIDE 0.9% IV 1,000 ML 100 ML IV CONT ×2 (05:51→16:00)
[2020-03-24] MEDS: AZTREONAM 1 GM in DEXTROSE 5% IN WATER 50 ML IVPB ×3 (05:51→21:25)
[2020-03-24 07:00] LABS: Folic Acid 6.6 ng/mL (2.76->20)
[2020-03-24 09:24] LABS: Troponin I 0.089 ng/mL (0.000-0.034)
[2020-03-24] MEDS: hydrALAZINE HCL 20 MG/ML VIAL 10 MG IV PUSH (09:26)
--- NOTE | 2020-03-24 10:56 | WPDNEURCNPN ---
Assessment and Plan Assessment and plan (1) Dementia: Qualifiers: Dementia type: unspecified type Dementia behavioral disturbance: without behavioral disturbance Qualified Code(s): F03.90 - Unspecified dementia without behavioral disturbance Code(s): F03.90 - Unspecified dementia without behavioral disturbance Status: Chronic (2) Acute encephalopathy: Code(s): G93.40 - Encephalopathy, unspecified Status: Acute Additional Plan Parkinson's dementia complex with change in the mental status will need the hydration and continuation of medication as such Consult date: 03/24/20 Time Seen: 10:15 HPI: Santos Leon is a 84 year old male admitted to the hospital with dementia with Parkinson's disease for the complaints of increasing lethargy as per the information available at the time of admission from the nursing staff patient is normally awake and can usually carry a conversation but has not been eating or drinking last several days in the emergency room his troponin was 0.074 sodium of 147, T of the brain for any bleed negative he was admitted to the hospital for further evaluation and he was swabbed for COVID-19 in the ER, as mentioned above he has ongoing diagnosis of dementia parkinsonism complex, never smoker or drinker and medications include carbidopa levodopa half a tablet 4 times a day with donepezil 5 mg at night Seroquel 20.5 mg b.i.d. p.r.n. 50 mg at night, in the ER he was found to be afebrile with blood pressure 155/118 which has come down to 156/79 respiration now only 18, as mentioned before x-ray chest negative CT of the head negative for bleed and routine labs with elevated sodium BUN 27 Review of Systems Review of Systems: All systems reviewed & are unremarkable except as noted in HPI and below PMFSH Past Medical History Medical History Cataract Dementia Parkinson disease Peyronie's disease Family History Family History Other Unknown family medical history Social History Social History Smoking status: Never smoker Alcohol intake: unknown Substance use: unknown Gender identity (if verbalized by the patient): Male Spiritual care concerns: No Meds Home Medications and Allergies Home Medications Medication Instructions Recorded Confirmed Type acetaminophen 1,000 mg PO Q6H PRN 01/26/20 03/23/20 History calcium carbonate-vitamin D3 1 tablet PO BID 01/26/20 03/23/20 History [Oyster Shell + D3] carbidopa-levodopa 0.5 tablet PO QID 01/26/20 03/23/20 History cholecalciferol (vitamin D3) 10 mcg PO DAILY 01/26/20 03/23/20 History donepezil 5 mg PO HS 01/26/20 03/23/20 History latanoprost 1 drp OPHTHALMIC (EYE) DAILY 01/26/20 03/23/20 History loperamide 2 mg PO QID PRN 01/26/20 03/23/20 History melatonin 5 mg PO HS 01/26/20 03/23/20 History montelukast 10 mg PO HS 01/26/20 03/23/20 History nitrofurantoin 50 mg PO DAILY 01/26/20 03/23/20 History omeprazole 20 mg PO DAILY 01/26/20 03/23/20 History quetiapine 12.5 mg PO BID PRN 01/26/20 03/23/20 History quetiapine 50 mg PO HS 01/26/20 03/23/20 History vitamin B complex [B 1 tablet PO DAILY 01/26/20 03/23/20 History Complex-Vitamin B12] fludrocortisone 0.1 mg PO DAILY #30 tablet 02/11/20 03/23/20 Rx Allergies Allergy/AdvReac Type Severity Reaction Status Date / Time phenytoin Allergy Severe Unknown Verified 02/11/20 03:40 prochlorperazine Allergy Severe HALLUCINATIONS, Verified 02/11/20 03:40 DIZZINESS, CHEST PRESSURE, SLURRED SPEECH, doxycycline Allergy Mild Unknown Verified 02/11/20 03:40 diclofenac Allergy Unknown Unknown Verified 02/11/20 03:40 levofloxacin Allergy Unknown Unknown Verified 02/11/20 03:40 amoxicillin [From Augmentin] Allergy Unknown Verified 02/11/20 03:40 carbamazepine Allergy Unknown Verified 02/11/20 03:40 clavul
--- NOTE | 2020-03-24 11:09 | PM.CNCAR ---
Assessment and Plan Assessment and plan (1) Elevated troponin: Code(s): R77.8 - Other specified abnormalities of plasma proteins Status: Acute Assessment and Plan: Patient with dementia, Parkinson disease, admitted with altered mental status. He has minimal troponin elevation which is essentially flat and likely non ACS related. EKG shows sinus rhythm, right bundle-branch block, no acute ST segment abnormality. At this time, recommend continued supportive care. Patient is DNR, and no further cardiac testing is anticipated, unless otherwise indicated. (2) Suspected 2019 novel coronavirus infection: Code(s): Z20.822 - Contact with and (suspected) exposure to COVID-19 Status: Acute Assessment and Plan: Management as per primary team (3) Dementia: Qualifiers: Dementia type: unspecified type Dementia behavioral disturbance: without behavioral disturbance Qualified Code(s): F03.90 - Unspecified dementia without behavioral disturbance Code(s): F03.90 - Unspecified dementia without behavioral disturbance Status: Chronic Assessment and Plan: Supportive care History of Present Illness History of Present Illness Consult date/time: 03/24/20 11:09 Date of consult: 03/24/2020 Reason for consult: Elevated troponin Requesting physician: LUCINDA Rainey Chief complaint: Admitted to hospital with altered mental status HPI: 84-year-old male with ?[place] body dementia, Parkinson disease. Patient brought to [facility] via EMS with altered mental status. Patient is a shelter resident, and is DNR. Apparently, his COVID test was negative recently. He has been placed in isolation and is being ruled out for COVID-19 infection. Patient is in altered mental status, and is unable to provide detailed medical information. He denied chest pain or shortness of breath at rest with gestures. EKG on admission which I personally evaluated showed sinus rhythm, right bundle-branch block, baseline artifact. Patient's troponins are minimally elevated and essentially flat. Chest x-ray is unremarkable. CT scan of the head did not show any acute abnormality. Reason For Visit: unresponsive, elevated troponine Review of Systems Review of Systems: Narrative: Review of system as per HPI, other systems difficult to obtain due to patient's altered mental status. He presented with delirium. Denies chest pain or shortness of breath at present with gestures. [facility] Past Medical History Medical History Cataract Dementia Parkinson disease Peyronie's disease Family History Family History (Updated 03/24/20 @ 11:10 by Jatinder Goldstein MD) Other Unknown family medical history Social History Social History Smoking status: Never smoker Alcohol intake: unknown Substance use: unknown Gender identity (if verbalized by the patient): Male Spiritual care concerns: No Meds Home Medications and Allergies Home Medications Medication Instructions Recorded Confirmed Type acetaminophen 1,000 mg PO Q6H PRN 01/26/20 03/23/20 History calcium carbonate-vitamin D3 1 tablet PO BID 01/26/20 03/23/20 History [Oyster Shell + D3] carbidopa-levodopa 0.5 tablet PO QID 01/26/20 03/23/20 History cholecalciferol (vitamin D3) 10 mcg PO DAILY 01/26/20 03/23/20 History donepezil 5 mg PO HS 01/26/20 03/23/20 History latanoprost 1 drp OPHTHALMIC (EYE) DAILY 01/26/20 03/23/20 History loperamide 2 mg PO QID PRN 01/26/20 03/23/20 History melatonin 5 mg PO HS 01/26/20 03/23/20 History montelukast 10 mg PO HS 01/26/20 03/23/20 History nitrofurantoin 50 mg PO DAILY 01/26/20 03/23/20 History omeprazole 20 mg PO DAILY 01/26/20 03/23/20 History quetiapine 12.5 mg PO BID PRN 01/26/20 03/23/20 History quetiapine 50 mg PO HS 01/26/20 03/23/20 History vitamin B complex [B 1 tablet PO DAILY 01/26/20
--- NOTE | 2020-03-24 13:17 | PM.IMPN ---
Progress Note: A&P Assessment and Plan (1) Acute encephalopathy: Code(s): G93.40 - Encephalopathy, unspecified Status: Acute Assessment and Plan: Presented with unresponsive episode and noted to have ongoing lethargy for about 3 days. He is awake today and oriented to self. Etiology for this is unclear. No signs/symptoms of underlying infection, no fever, leukocytosis, or meningeal signs to suggest infectious encephalopathy, meningitis, etc. UA normal. May be acute worsening of his dementia. He did appear dehydrated on presentation. Head CT negative for acute findings so CVA less likely. MRI unable to be performed due to implant. Seizure is considered. TSH, B12, and folate wnl. Appreciate neurology input Continue IV fluids Continue neuro checks q4 Aspiration precautions in place. He is currently NPO. Will order bedside swallow study although I am unsure if patient will be able to participate. Continue IV aztreonam and vancomycin at this time. Discussed case with neurologist who recommends that if patient continues to have no s/sx of underlying infection for 24 hours, this can be discontinued. Blood cultures pending Obtain EEG Check ammonia (2) Elevated troponin: Code(s): R77.8 - Other specified abnormalities of plasma proteins Status: Acute Assessment and Plan: Presentation with peak at 0.095 and subsequent downward trend. Etiology unclear. Seizure considered and this may account for mild troponin elevation. EKG unremarkable. ACS not suspected at this time. Appreciate cardiology input Check CK to assess for seizure as etiology. (3) Hypertension: Qualifiers: Hypertension type: unspecified Qualified Code(s): I10 - Essential (primary) hypertension Code(s): I10 - Essential (primary) hypertension Status: Acute Assessment and Plan: BP reviewed and generally well controlled. Elevated upon presentation, but overall has improved. He is not on any antihypertensive agents, in fact he is on fludrocortisone which is likely due to orthostasis from his Parkinson's disease. PRN IV hydralazine available as needed Monitor blood pressure daily (4) Dehydration: Code(s): E86.0 - Dehydration Status: Acute Assessment and Plan: Patient appear dry upon presentation. He likely has severe dementia and is not drinking adequately. Sodium slightly elevated, likely indicating dehydration. Continue IV fluids; normal saline at 100 ml/hr Monitor electrolytes closely (5) Dementia: Qualifiers: Dementia behavioral disturbance: without behavioral disturbance Dementia type: unspecified type Qualified Code(s): F03.90 - Unspecified dementia without behavioral disturbance Code(s): F03.90 - Unspecified dementia without behavioral disturbance Status: Chronic Assessment and Plan: Baseline is unclear. He is alert to self only. He presented to the emergency department at this facility about 2 months ago for another episode of unresponsiveness. Monitor mental status closely; plan as above Continue donepezil and Seroquel when able to tolerate p.o. intake (6) Parkinson disease: Code(s): G20 - Parkinson's disease Status: Inactive Assessment and Plan: Resume carbidopa/levodopa when able to tolerate p.o. intake (7) Suspected 2019 novel coronavirus infection: Code(s): Z20.822 - Contact with and (suspected) exposure to COVID-19 Status: Acute Assessment and Plan: Unable to state if he has had any COVID positive contacts. Does not appear to be symptomatic. Chest x-ray showed no acute findings. COVID-19 results pending. Continue isolation precautions No need for COVID specific medications at this time as he is maintaining adequate oxygen saturations on room air. Trend acute phase reactants Additional Plan Will order PT/OT evaluation following results of COVID-19 test.
[2020-03-24 14:52] LABS: Ammonia < 9 umol/L (9-30); Creatine Kinase 107 U/L (55-170)
--- NOTE | 2020-03-24 15:14 | PCSTNOTE ---
Speech Therapy attempted a Bedside Swallow Evaluation this afternoon at 3:05 and patient did not awaken or arouse in order to allow for oral feedings. No oral feedings were presented. Speech Therapist spoke with nurse Noble, about results and recommendations. Attempt Bedside Swallow Evaluation again tomorrow, Monday.
[2020-03-24 18:38] LABS: SARS-CoV-2 RNA PCR Negative
[2020-03-25] VITALS (11 sets, daily range): BP systolic 138–161; BP diastolic 64–90; PULSE 81–100; RESP 16–18; TEMP 36.4–36.9; O2SAT 98–100
[2020-03-25] MEDS: SODIUM CHLORIDE 0.9% IV 1,000 ML 100 ML IV CONT ×2 (04:43→13:41)
[2020-03-25] MEDS: AZTREONAM 1 GM in DEXTROSE 5% IN WATER 50 ML IVPB ×2 (04:45→13:43)
[2020-03-25 04:46] LABS: Basophils Percent Auto 0.6 % (0.2-1.2); Eosinophils Absolute Auto 0.1 K/mm3 (0-0.3); Eosinophils Percent Auto 1.5 % (0-4.4); Hematocrit 36.3 % (42.0-52.0); Hemoglobin 11.7 g/dL (14.0-18.0); Immature Granulocyte Absolute 0.02 K/mm3 (0.00-0.031); Immature Granulocyte Percent A 0.4 % (0-0.5); Lymphocytes Absolute Auto 1.23 K/mm3 (0.9-3.2); Lymphocytes Percent Auto 22.6 % (18.3-44.2); Mean Corpuscular HGB Conc 32.2 g/dl (32-36); Mean Corpuscular Hemoglobin 30.7 pg (26-34); Mean Corpuscular Volume 95.3 fl (80-100); Mean Platelet Volume 9.5 fl (7.4-10.4); Monocytes Absolute Auto 0.4 K/mm3 (0.1-0.6); Monocytes Percent Auto 6.6 % (2.6-8.5); Neutrophils Absolute Auto 3.7 K/mm3 (1.3-6.7); Neutrophils Percent Auto 68.3 % (45.5-73.1); Platelet Count Result 228 k/mm3 (150-375); Red Blood Count 3.81 M/mm3 (4.6-6.20); Red Cell Distribution Width 14.2 % (11.5-14.5); White Blood Count 5.5 K/mm3 (4.5-10.0)
[2020-03-25 05:11] LABS: Alanine Aminotransferase 14 U/L (4-50); Alkaline Phosphatase 70 U/L (38-126); Anion Gap 5 mmol/L (8-16); Aspartate Amino Transferase 22 U/L (17-59); Bilirubin,Total 0.6 mg/dL (0.2-1.3); Blood Urea Nitrogen 22 mg/dL (9-20); Calcium 8.5 mg/dL (8.4-10.2); Carbon Dioxide 25 mmol/L (22-30); Chloride 115 mmol/L (98-107); Estimated CRCL calculation 40 ml/min; Estimated Glomerular Filt Rate > 60; Glucose 81 mg/dL (75-110); Magnesium 1.9 mg/dL (1.6-2.3); Potassium 3.4 mmol/L (3.4-5.0); Sodium 145 mmol/L (137-145)
[2020-03-25 05:26] LABS: CRP 1.5 mg/dL (<1.0); Lactate Dehydrogenase 371 U/L (313-618)
--- NOTE | 2020-03-25 11:06 | P.NEURO_ITS ---
Neurology EEG Report General Information Date of Study: 03/25/00 TEST EEG DIAGNOSIS unresponsive episode CONDITION OF RECORDING patient unresponsive and slept throughout the tracing EEG NUMBER [id number] CLINICAL HISTORY unresponsive episode EEG DESCRIPTION whole record consists of low to medium voltage 2 to 3 hertz per 2nd delta activity admixed with intermittent low-voltage 15 to 18 hertz per 2nd beta. Hyperventilation not done. Photic stimulation not done. Non paroxysmal. Nonfocal. Nonlateralizing. IMPRESSION Abnormal record due to the presence of bihemispheric delta activity sup erimposed by low-voltage beta activity without evidence of any of the paroxysmal discharge. Clinical correlation recommended these abnormalities are suggestive of underlying organic a metabolic encephalopathy or postictal state but there is no evidence of paroxysmal activity at this time
--- NOTE | 2020-03-25 11:41 | PM.IMPN ---
Progress Note: A&P Assessment and Plan (1) Acute encephalopathy: Code(s): G93.40 - Encephalopathy, unspecified Status: Acute Assessment and Plan: Presented with unresponsive episode and noted to have ongoing lethargy for about 3 days. He is awake today and oriented to self. Etiology for this is unclear. No signs/symptoms of underlying infection, no fever, leukocytosis, or meningeal signs to suggest infectious encephalopathy, meningitis, etc. CRP 1.5. UA normal. May be acute worsening of his dementia. He did appear dehydrated on presentation. Head CT negative for acute findings so CVA less likely. MRI unable to be performed due to implant. Seizure considered. EEG performed which was non-specific; showed abnormal findings suggesting metabolic encephalopathy or postictal state. No evidence of paroxysmal activity noted. TSH, B12, and folate, ammonia wnl. Appreciate neurology input Continue IV fluids; patient still not eating or drinking. Continue neuro checks q4 Aspiration precautions in place. Bedside swallow study was attempted yesterday, however patient was unable to participate as he was unarousable. ST plans to attempt repeat bedside today. Currently NPO. Patient's son/POA states that he is not interested in feeding tube or TPN/PPN should it reach that point. Continue IV aztreonam and vancomycin at this time. Preliminary blood cultures show gram positive cocci in clusters in 1/2 bottles; will await official report. Consider ID consultation based on results. Discussed at length with son today who reports patient is essentially near baseline and states he has end-stage dementia. Hospice is being considered by family. Would like to discuss with family further and would like to revisit this tomorrow. (2) Elevated troponin: Code(s): R77.8 - Other specified abnormalities of plasma proteins Status: Acute Assessment and Plan: Presentation with peak at 0.095 and subsequent downward trend. Etiology unclear. Seizure considered and this may account for mild troponin elevation, however CK was wnl so less likely. EKG unremarkable. ACS not suspected at this time. Appreciate cardiology input (3) Hypertension: Qualifiers: Hypertension type: unspecified Qualified Code(s): I10 - Essential (primary) hypertension Code(s): I10 - Essential (primary) hypertension Status: Acute Assessment and Plan: BP reviewed and generally well controlled. Elevated upon presentation, but overall has improved. He is not on any antihypertensive agents, in fact he is on fludrocortisone which is likely due to orthostasis from his Parkinson's disease. Last BP 158/76. PRN IV hydralazine available as needed Monitor blood pressure daily (4) Dehydration: Code(s): E86.0 - Dehydration Status: Acute Assessment and Plan: Patient appear dry upon presentation. He likely has severe dementia and is not drinking adequately. Sodium slightly elevated, likely indicating dehydration, improved today at 145. Continue IV fluids; normal saline at 75 ml/hr Monitor electrolytes closely (5) Dementia: Qualifiers: Dementia behavioral disturbance: without behavioral disturbance Dementia type: unspecified type Qualified Code(s): F03.90 - Unspecified dementia without behavioral disturbance Code(s): F03.90 - Unspecified dementia without behavioral disturbance Status: Chronic Assessment and Plan: He is alert to self only upon evaluation yesterday and today does not respond to any questions verbally. Son reports he is essentially at baseline. Indicates he has end stage Lewy body dementia. Monitor mental status closely; plan as above Continue donepezil and Seroquel when able to tolerate p.o. intake; currently still NPO (6) Parkinson disease: Code(s): G20 - Parkinson's disease Status: Inactive Assessment and Plan: He is establishe
--- NOTE | 2020-03-25 13:55 | PC.NURSE ---
This patient, Santos Leon, was received from IMU on 03/25/20 at 1355. Patient/family oriented to unit policies and routines. Received report from ALIYAH Neville.
--- NOTE | 2020-03-25 14:02 | PC.NURSE ---
This patient, Santos Leon, was transferred to [[id number]] on 03/25/20 at 1352. Personal belongings sent with patient. Report given to [Kelin ]. Appropriate documentation sent with patient.
--- NOTE | 2020-03-25 15:23 | PCSTNOTE ---
This patient was seen for an attempted Bedside Swallow Evaluation yesterday 03/24/20 however patient did not arouse for BSE. Today, the patient's eyes were open. Therapist obtained ice chips and presented patient with one ice chip per spoon. Patient did move lips as if to accept the ice chip/spoon however no further movement was observed including lingual movement or laryngeal movement. No further ice chips were presented and testing was terminated. Results indicate this patient is not able to be an oral feeder at this time and should remain NPO. Speech Therapy will not continue however physician may re-order Bedside Swallow Evaluation when patient better able to participate.
[2020-03-26] MEDS: AZTREONAM 1 GM in DEXTROSE 5% IN WATER 50 ML IVPB ×3 (00:17→13:56)
[2020-03-26] MEDS: SODIUM CHLORIDE 0.9% IV 1,000 ML 75 ML IV CONT ×2 (04:57→18:58)
[2020-03-26 04:59] VITALS: BP 136/70; PULSE 91; RESP 22; TEMP 36.6; O2SAT 95
[2020-03-26 05:30] LABS: Basophils Absolute Auto 0.1 K/mm3 (0.0-0.1); Basophils Percent Auto 0.5 % (0.2-1.2); Eosinophils Absolute Auto 0.1 K/mm3 (0-0.3); Eosinophils Percent Auto 0.9 % (0-4.4); Hematocrit 39.8 % (42.0-52.0); Immature Granulocyte Absolute 0.04 K/mm3 (0.00-0.031); Immature Granulocyte Percent A 0.4 % (0-0.5); Lymphocytes Absolute Auto 1.32 K/mm3 (0.9-3.2); Lymphocytes Percent Auto 14.1 % (18.3-44.2); Mean Corpuscular HGB Conc 32.7 g/dl (32-36); Mean Corpuscular Hemoglobin 31.4 pg (26-34); Mean Corpuscular Volume 96.1 fl (80-100); Mean Platelet Volume 9.9 fl (7.4-10.4); Monocytes Absolute Auto 0.6 K/mm3 (0.1-0.6); Monocytes Percent Auto 6.1 % (2.6-8.5); Neutrophils Absolute Auto 7.3 K/mm3 (1.3-6.7); Platelet Count Result 228 k/mm3 (150-375); Red Blood Count 4.14 M/mm3 (4.6-6.20); White Blood Count 9.3 K/mm3 (4.5-10.0)
[2020-03-26 05:45] LABS: Alanine Aminotransferase 14 U/L (4-50); Albumin Level 3.2 g/dL (3.5-5.1); Alkaline Phosphatase 72 U/L (38-126); Anion Gap 5 mmol/L (8-16); Aspartate Amino Transferase 23 U/L (17-59); Bilirubin,Total 0.7 mg/dL (0.2-1.3); Blood Urea Nitrogen 20 mg/dL (9-20); CRP 1.5 mg/dL (<1.0); Calcium 8.8 mg/dL (8.4-10.2); Carbon Dioxide 24 mmol/L (22-30); Chloride 114 mmol/L (98-107); Estimated CRCL calculation 49 ml/min; Estimated Glomerular Filt Rate > 60; Glucose 77 mg/dL (75-110); Potassium 3.6 mmol/L (3.4-5.0); Sodium 143 mmol/L (137-145)
[2020-03-26 10:00] VITALS: BP 129/72; PULSE 93; RESP 18; TEMP 37.2; O2SAT 98
--- NOTE | 2020-03-26 11:04 | PM.PNCARD ---
Progress Note: A&P Assessment and Plan (1) Elevated troponin: Code(s): R77.8 - Other specified abnormalities of plasma proteins Status: Acute Assessment and Plan: Patient with dementia, Parkinson disease, admitted with altered mental status. He has minimal troponin elevation which is essentially flat and likely non ACS related. EKG shows sinus rhythm, right bundle-branch block, no acute ST segment abnormality. At this time, recommend continued supportive care. Patient is DNR, and no further cardiac testing is anticipated, unless otherwise indicated. Continue supportive care no new cardiac recommendations today. (2) Suspected 2019 novel coronavirus infection: Code(s): Z20.822 - Contact with and (suspected) exposure to COVID-19 Status: Acute Assessment and Plan: COVID negative. (3) Dementia: Qualifiers: Dementia type: unspecified type Dementia behavioral disturbance: without behavioral disturbance Qualified Code(s): F03.90 - Unspecified dementia without behavioral disturbance Code(s): F03.90 - Unspecified dementia without behavioral disturbance Status: Chronic Assessment and Plan: Supportive care Subjective Date/time seen: Date of service 03/26/20 11:04 No complaints. Apparently patient's family offered hospice and they are not ready for it Review of Systems Review of Systems: ROS unobtainable: Yes unobtainable due to mental status Exam Narrative: Exam Narrative: PHYSICAL EXAMINATION: GENERAL: Patient lying down in the bed, mouth open, somnolent MENTAL STATUS: Delirious EYES: Extraocular movements intact EARS: External ears appear normal NOSE: Normal and patent, no discharge MOUTH: Mucous membranes dry NECK: Supple, no JVD CHEST: Decreased breath sounds, for respiratory effort HEART: Normal rate, regular rhythm, normal S1 and S2 ABDOMEN: Soft, nontender NEUROLOGICAL: Minimally responsive MUSCULOSKELETAL: No major deformity, no amputation EXTREMITIES: No pedal edema SKIN: no rash on the exposed area, no cyanosis PSYCHIATRIC: Minimally responsive Objective Data Vital Signs Vital Signs: Vital Signs - 24 hr 03/25/20 12:00 03/25/20 15:44 03/25/20 20:00 Temperature 36.9 C 36.9 C Pulse Rate 100 98 98 Respiratory Rate 18 18 16 Blood Pressure 138/74 142/78 H Pulse Oximetry 100 98 99 03/25/20 21:56 03/26/20 04:59 03/26/20 10:00 Temperature 36.9 C 36.6 C 37.2 C Pulse Rate 98 91 93 Respiratory Rate 16 22 H 18 Blood Pressure 140/64 136/70 129/72 Pulse Oximetry 99 95 98 Intake/Output Intake/Output: Intake & Output 03/23/20 03/24/20 03/25/20 03/26/20 23:59 23:59 23:59 23:59 Intake Total 1300 1400 2577 873 Output Total 700 975 450 Balance 1726 808 8501 423 Meds/Results Medications: Active Medications Generic Name Dose Route Start Last Admin Trade Name Al PRN Reason Stop Dose Admin Aztreonam 1 gm/ Dextrose 50 mls @ 100 mls/hr 03/23/20 22:00 03/26/20 05:25 IVPB Infused Q8HR MUNA Infusion Sodium Chloride 1,000 mls @ 75 mls/hr 03/23/20 21:50 03/26/20 04:57 Normal Saline Iv IV CONT 75 mls/hr .[id number] MUNA Administration Vancomycin HCl 1,000 mg in 250 mls @ 250 mls/hr 03/24/20 21:00 03/25/20 21:25 Vancomycin 1,000 Mg/D5w 250 Ml IVPB Infused Q24H MUNA Infusion Radiology Results: ITS Impressions Chest X-Ray 03/23/20 20:46 IMPRESSION: 1. No acute cardiopulmonary abnormality. Head CT 03/23/20 20:56 IMPRESSION: 1. No acute intracranial abnormality. 2. Age related findings. Labs Labs: Laboratory Results - last 24 hr 03/26/20 03/26/20 05:10 05:10 WBC 9.3 RBC 4.14 L Hgb 13.0 L Hct 39.8 L MCV 96.1 MCH 31.4 MCHC 32.7 RDW 14.0 Plt Count 228 MPV 9.9 Immature Gran % (Auto) 0.4 Neut % (Auto) 78.0 H Lymph % (Auto) 14.1 L [place] % (Auto) 6.1 Eos % (Auto) 0.9 Baso % (Auto) 0.5 Lymph # (Auto) 1.32 [place] # (Au
[2020-03-26 14:00] VITALS: BP 119/59; PULSE 108; RESP 16; TEMP 37.2; O2SAT 97
--- NOTE | 2020-03-26 14:21 | PM.IMPN ---
Progress Note: A&P Assessment and Plan (1) Acute encephalopathy: Code(s): G93.40 - Encephalopathy, unspecified Status: Acute Assessment and Plan: Presented with unresponsive episode and noted to have ongoing lethargy for about 3 days prior. Etiology for this is unclear. No signs/symptoms of underlying infection, no fever, leukocytosis, or meningeal signs to suggest infectious encephalopathy, meningitis, etc. CRP 1.5. UA normal. Head CT negative for acute findings so CVA less likely. MRI unable to be performed due to implant. Seizure considered. EEG performed which was non-specific; showed abnormal findings suggesting metabolic encephalopathy or postictal state. No evidence of paroxysmal activity noted. TSH, B12, and folate, ammonia wnl. I suspect this is progression of severe, end-stage dementia worsened by dehydration. Prognosis is guarded. Appreciate neurology input Continue IV fluids; patient still not eating or drinking. Aspiration precautions in place. Bedside swallow study was attempted on 03/24, however not performed because patient was unarousable. Repeated attempt on 03/25, patient accepted ice chips but may no movement to swallow and testing was terminated. Recommended the patient remain NPO. Patient's son/POA states that he is not interested in feeding tube or TPN/PPN should it reach that point. Patient's family considering hospice care and have been in contact with [facility]. Planning to speak with entire family and come to decision. Patient's son, Tito will contact me at this time. Will proceed with COVID testing tonight in the event that patient may return to [facility] on hospice tomorrow. (2) Positive blood culture: Code(s): R78.81 - Bacteremia Status: Acute Assessment and Plan: 1/2 bottles showed growth of 2 strains of coagulase negative staphylococcus. Suspect this is secondary to contamination. He has no additional signs or symptoms to suggest underlying infection. He remains afebrile. UA normal. Chest x-ray unremarkable. No cutaneous wounds or openings. No leukocytosis. CRP 1.5. He has been on broad-spectrum antibiotics for 3 days for consideration of infectious etiology for encephalopathy with no improvement, making infection less likely. Will discontinue his IV vancomycin and aztreonam at this time. Patient's family has declined infectious disease consult Monitor clinically (3) Elevated troponin: Code(s): R77.8 - Other specified abnormalities of plasma proteins Status: Acute Assessment and Plan: Troponins elevated on presentation with peak at 0.095 and subsequent downward trend. Etiology unclear. Seizure considered and this may account for mild troponin elevation, however CK was wnl so less likely. EKG unremarkable. ACS not suspected at this time. Appreciate cardiology input (4) Hypertension: Qualifiers: Hypertension type: unspecified Qualified Code(s): I10 - Essential (primary) hypertension Code(s): I10 - Essential (primary) hypertension Status: Acute Assessment and Plan: BP reviewed and generally well controlled. Elevated upon presentation, but overall has improved. He is not on any antihypertensive agents, in fact he is on fludrocortisone which is likely due to orthostasis from his Parkinson's disease. Last BP 136/70. PRN IV hydralazine available as needed Monitor blood pressure daily (5) Dehydration: Code(s): E86.0 - Dehydration Status: Acute Assessment and Plan: Patient appeared dry upon presentation. He likely has severe dementia and is not drinking adequately. Sodium slightly elevated, indicating dehydration, has improved today at 143. Continue IV fluids; normal saline at 75 ml/hr He is NPO Monitor electrolytes closely (6) Dementia: Qualifiers: Dementia type: unspecified type Dementia behavioral disturbance: without behavior
[2020-03-26 20:32] LABS: Vancomycin Trough 7.5 ug/mL (10.0-20.0)
[2020-03-26 22:00] VITALS: BP 124/56; PULSE 102; RESP 16; TEMP 36.3; O2SAT 95
[2020-03-27 05:27] LABS: Hematocrit 42.9 % (42.0-52.0); Hemoglobin 13.9 g/dL (14.0-18.0); Mean Corpuscular HGB Conc 32.4 g/dl (32-36); Mean Corpuscular Volume 95.8 fl (80-100); Mean Platelet Volume 10.4 fl (7.4-10.4); Platelet Count Result 180 k/mm3 (150-375); Red Blood Count 4.48 M/mm3 (4.6-6.20); White Blood Count 8.7 K/mm3 (4.5-10.0)
[2020-03-27 06:00] VITALS: BP 144/72; PULSE 105; RESP 16; TEMP 36.3; O2SAT 97
[2020-03-27 07:22] LABS: Anion Gap 9 mmol/L (8-16); Blood Urea Nitrogen 19 mg/dL (9-20); Calcium 8.7 mg/dL (8.4-10.2); Carbon Dioxide 22 mmol/L (22-30); Chloride 111 mmol/L (98-107); Estimated CRCL calculation 49 ml/min; Estimated Glomerular Filt Rate > 60; Glucose 88 mg/dL (75-110); Potassium 3.6 mmol/L (3.4-5.0); Sodium 142 mmol/L (137-145)
[2020-03-27 09:13] LABS: CRP 17.8 mg/dL (<1.0)
[2020-03-27] MEDS: SODIUM CHLORIDE 0.9% IV 1,000 ML 65 ML IV CONT (12:30)
--- NOTE | 2020-03-27 13:42 | PM.IMPN ---
Progress Note: A&P Assessment and Plan (1) Acute encephalopathy: Code(s): G93.40 - Encephalopathy, unspecified Status: Acute Assessment and Plan: Presented with increased lethargy x3 days progressing to completely unresponsive episode. Suspect secondary to end-stage dementia. No signs/symptoms of underlying infection, no fever, leukocytosis, or meningeal signs to suggest infectious encephalopathy, meningitis, etc. CRP 1.5. UA normal. Head CT negative for acute findings and no focal deficits so CVA unlikely. MRI unable to be performed due to implant. Seizure considered. EEG performed which was non-specific; showed abnormal findings suggesting metabolic encephalopathy or postictal state. No evidence of paroxysmal activity noted. TSH, B12, folate, ammonia wnl. He has been unresponsive since 03/23/20. Prognosis is poor. Family is planning for hospice care at [facility]. Plan for discharge tomorrow with [facility]. Awaiting negative COVID test for discharge Continue IV fluids at this time. He has not had anything to eat or drink since 03/23. Aspiration precautions in place. Bedside swallow study was attempted on 03/24, however not performed because patient was unarousable. Repeated attempt on 03/25, patient accepted ice chips but may no movement to swallow and testing was terminated. Recommended the patient remain NPO. Patient's son/POA states that he is not interested in feeding tube or TPN/PPN should it reach that point. (2) Positive blood culture: Code(s): R78.81 - Bacteremia Status: Acute Assessment and Plan: 03/07 bottles showed growth of 2 strains of coagulase negative staphylococcus. Suspect this is secondary to contamination. He has no additional signs or symptoms to suggest underlying infection. He remains afebrile. UA normal. Chest x-ray unremarkable. No cutaneous wounds or openings. No leukocytosis. CRP 1.5. He has been on broad-spectrum antibiotics for 3 days for consideration of infectious etiology for encephalopathy with no improvement, making infection unlikely. IV vancomycin and aztreonam discontinued on 03/26 Monitor clinically (3) Elevated troponin: Code(s): R77.8 - Other specified abnormalities of plasma proteins Status: Acute Assessment and Plan: Troponins elevated on presentation with peak at 0.095 and subsequent downward trend. Etiology unclear. Seizure considered and this may account for mild troponin elevation, however CK was wnl so less likely. EKG unremarkable. ACS not suspected at this time. Appreciate cardiology input (4) Hypertension: Qualifiers: Hypertension type: unspecified Qualified Code(s): I10 - Essential (primary) hypertension Code(s): I10 - Essential (primary) hypertension Status: Acute Assessment and Plan: BP reviewed and generally well controlled. Elevated upon presentation, but overall has improved. He is not on any antihypertensive agents, in fact he is on fludrocortisone which is likely due to orthostasis from his Parkinson's disease. Last BP 144/72. PRN IV hydralazine available as needed Monitor blood pressure daily (5) Dehydration: Code(s): E86.0 - Dehydration Status: Acute Assessment and Plan: Patient appeared dry upon presentation. He likely has severe dementia and is not drinking adequately. Sodium slightly elevated, indicating dehydration, has improved today at 142. Continue IV fluids; normal saline at 65 ml/hr He is NPO Monitor electrolytes closely (6) Dementia: Qualifiers: Dementia type: unspecified type Dementia behavioral disturbance: without behavioral disturbance Qualified Code(s): F03.90 - Unspecified dementia without behavioral disturbance Code(s): F03.90 - Unspecified dementia without behavioral disturbance Status: Chronic Assessment and Plan: He was alert to self only upon evaluation 03/24
[2020-03-27 14:00] VITALS: BP 145/66; PULSE 103; RESP 24; TEMP 37.9; O2SAT 93
--- NOTE | 2020-03-27 14:38 | PCDIET ---
Nutrition follow up. Patient is currently NPO. No plans for nutritional interventions. Patient to be discharged tomorrow with hospice.
[2020-03-27 16:56] VITALS: TEMP 37.9
[2020-03-27 17:38] LABS: SARS-CoV-2 RNA PCR Negative
[2020-03-28] MEDS: SODIUM CHLORIDE 0.9% IV 1,000 ML 65 ML IV CONT (03:57)
[2020-03-28 06:03] VITALS: TEMP 37.7
[2020-03-28 06:33] VITALS: TEMP 37.5
--- NOTE | 2020-03-28 09:37 | P.DS_ITS ---
DS: Summary Time Spent with Patient Time attestation: Total time spent providing and/or coordinating discharge ser vices: Exam Narrative: Exam Narrative: Mr. Leon is a thin, frail, chronically ill- appearing 84-year-old male who is lying supine in bed. He appears comfortable and is in NARD. Neuro: asleep, does not open eyes, does not respond to questions verbally or follow commands, HEENMT: normocephalic, atraumatic, EOMI, sclerae anicteric, dry oral mucosa, tongue midline, nares patent Neck: supple, no lymphadenopathy Respiratory: snoring respirations, clear to auscultation, nonlabored breathing Cardio: regular rate, regular rhythm with S1-S2 Abdomen: nondistended, normoactive bowel sounds, soft, nontender to palpation, no rigidity or guarding : Mock catheter patent and draining clear yellow urine Extremities: no edema, erythema, cyanosis, clubbing, or tenderness to palpation, DP pulses 2+ bilaterally Skin: no rashes or lesions, warm and dry Psych: poor judgment and insight DS: Data Data Completed and Pending Labs on day of discharge: Labs from last 24 hours 03/27/20 01:54 SARS-CoV-2 RNA (RT-PCR) Negative Preliminary micro results at discharge 03/23/20 19:31 Blood Culture - Preliminary Blood Discharge Plan Discharge Attending physician on discharge: Madi Boone Consulting providers: MELY VALENZUELA ; Jose Miguel Wing ; Ruth Sanderson Discharging Clinician: Aura Rainey Patient Disposition: Hospice - Medical Facility Activity: as tolerated Diet: as tolerated Discharge Instructions: Hospitalist discharge instructions: * All further care will be provided by hospice. * No changes to medications. Patient Instructions: Antibiotic Form, How To Wash Your Hands (DC), COVID-19 (Coronavirus Disease 2019) (DC), COVID-19 and Chronic Health Conditions (DC), Face Coverings (Masks) and COVID-19 (DC) Stand Alone Forms: General Discharge Information Discharge Medications: Continued quetiapine 25 mg Tablet 12.5 mg PO BID PRN (Reason: Agitation) RF: 0 latanoprost 0.005 % Drops 1 drp OPHTHALMIC (EYE) DAILY RF: 0 donepezil 5 mg Tablet 5 mg PO HS RF: 0 loperamide 2 mg Tablet 2 mg PO QID PRN (Reason: Constipation) RF: 0 acetaminophen 500 mg Tablet 1,000 mg PO Q6H PRN (Reason: Pain) RF: 0 carbidopa-levodopa 10-100 mg Tablet 0.5 tablet PO QID RF: 0 omeprazole 20 mg Capsule,Delayed Release(Dr/Ec) 20 mg PO DAILY RF: 0 vitamin B complex [B Complex-Vitamin B12] Tablet 1 tablet PO DAILY RF: 0 montelukast 10 mg Tablet 10 mg PO HS RF: 0 cholecalciferol (vitamin D3) 10 mcg (400 unit) Capsule 10 mcg PO DAILY RF: 0 calcium carbonate-vitamin D3 [Oyster Shell + D3] 250-125 mg-unit Tablet 1 tablet PO BID RF: 0 quetiapine 50 mg Tablet 50 mg PO HS RF: 0 nitrofurantoin 50 mg Capsule 50 mg PO DAILY RF: 0 melatonin 5 mg Tablet 5 mg PO HS RF: 0 fludrocortisone 0.1 mg tablet 0.1 mg PO DAILY Qty: 30 RF: 0 Date of admission: 03/23/20 21:48 Primary Care Provider: Fritz Loredo Admitting Provider: Bright Powell Attending physician on admission: Aura Rainey Condition: Terminal Quality VTE Prophylaxis VTE prophylaxis: mechanical ordered
--- NOTE | 2020-03-28 12:39 | PC.NURSE ---
Patient unresponsive to verbal and tactile stimuli. Responds only slightly when turned (with slight grimace). Breathing is labored. Patient diaphoretic. Called health care administrator and reported status to her as patient is scheduled to transfer to [facility] today. improvement coordinator called [facility] and spoke with Alma. She was notified of patient's condition. Awaiting further instructions from hospice.
--- NOTE | 2020-03-28 14:18 | PM.IMPN ---
Progress Note: A&P Assessment and Plan (1) Hospice care: Code(s): Z51.5 - Encounter for palliative care Status: Acute Assessment and Plan: Given patient's unresponsiveness and end-stage dementia, family opted for hospice care and signed with [facility] on 03/27/2020. Plan was for discharge to [facility] today with [facility]. However, this afternoon his breathing became more labored and did not feel that he would tolerate transfer to another facility. [facility] home health aide came to evaluate the patient and he will continue with inpatient hospice. [facility] RN has contacted patient's family who will be coming to visit (2 visitors to 2 COVID restrictions) Begin morphine drip 1 mg/hour with 2 mg loading dose 20 mg IV Lasix IV 1x Sublingual atropine p.r.n. Tylenol suppository p.r.n. (2) Acute encephalopathy: Code(s): G93.40 - Encephalopathy, unspecified Status: Acute Assessment and Plan: Presented with increased lethargy x3 days progressing to completely unresponsive episode. Suspect secondary to end-stage dementia. No signs/symptoms of underlying infection, no fever, leukocytosis, or meningeal signs to suggest infectious encephalopathy, meningitis, etc. CRP 1.5. UA normal. Head CT negative for acute findings and no focal deficits so CVA unlikely. MRI unable to be performed due to implant. Seizure considered. EEG performed which was non-specific; showed abnormal findings suggesting metabolic encephalopathy or postictal state. No evidence of paroxysmal activity noted. TSH, B12, folate, ammonia wnl. He has been unresponsive since 03/23/20. Prognosis is poor. (3) Positive blood culture: Code(s): R78.81 - Bacteremia Status: Acute Assessment and Plan: 1/2 bottles showed growth of 2 strains of coagulase negative staphylococcus. Suspect this is secondary to contamination. He has no additional signs or symptoms to suggest underlying infection. He remains afebrile. UA normal. Chest x-ray unremarkable. No cutaneous wounds or openings. No leukocytosis. CRP 1.5. He has been on broad-spectrum antibiotics for 3 days for consideration of infectious etiology for encephalopathy with no improvement, making infection unlikely. IV vancomycin and aztreonam discontinued on 03/26 (4) Elevated troponin: Code(s): R77.8 - Other specified abnormalities of plasma proteins Status: Acute Assessment and Plan: Troponins elevated on presentation with peak at 0.095 and subsequent downward trend. Etiology unclear. Seizure considered and this may account for mild troponin elevation, however CK was wnl so less likely. EKG unremarkable. ACS not suspected at this time. (5) Hypertension: Qualifiers: Hypertension type: unspecified Qualified Code(s): I10 - Essential (primary) hypertension Code(s): I10 - Essential (primary) hypertension Status: Acute Assessment and Plan: BP reviewed and generally well controlled. Elevated upon presentation, but overall has improved. He is not on any antihypertensive agents, in fact he is on fludrocortisone which is likely due to orthostasis from his Parkinson's disease. (6) Dehydration: Code(s): E86.0 - Dehydration Status: Acute Assessment and Plan: Patient appeared dry upon presentation. He likely has severe dementia and is not drinking adequately. Sodium slightly elevated, indicating dehydration, has improved today at 142. (7) Dementia: Qualifiers: Dementia type: unspecified type Dementia behavioral disturbance: without behavioral disturbance Qualified Code(s): F03.90 - Unspecified dementia without behavioral disturbance Code(s): F03.90 - Unspecified dementia without behavioral disturbance Status: Chronic Assessment and Plan: End-stage (8) Parkinson disease: Code(s): G20 - Parkinson's disease Status: Inactive
--- NOTE | 2020-03-28 14:25 | PC.NURSE ---
Patient being discharged and re-admitted to inpatient hospice.
--- NOTE | 2020-03-28 14:33 | PM.DS ---
DS: Admitting Diagnosis Admitting Diagnosis Admitting Diagnosis: Unresponsive episode DS: Discharge Diagnosis Discharge Diagnosis (1) Hospice care: Code(s): Z51.5 - Encounter for palliative care Status: Acute Assessment and Plan: Given patient's unresponsiveness and end-stage dementia, family opted for hospice care and signed with [facility] on 03/27/2020. Plan was for discharge to [facility] 03/28 with [facility]. However, his breathing became more labored and did not feel that he would tolerate transfer to outside facility. [place] supervisor brake repair came to evaluate the patient and he will continue with inpatient hospice. [place] RN has contacted patient's family who will be coming to visit (2 visitors due to COVID restrictions). Hospice admission orders placed. (2) Acute encephalopathy: Code(s): G93.40 - Encephalopathy, unspecified Status: Acute Assessment and Plan: Presented with increased lethargy x3 days progressing to completely unresponsive episode. This is secondary to end-stage dementia. No signs/symptoms of underlying infection, no fever, leukocytosis, or meningeal signs to suggest infectious encephalopathy, meningitis, etc. CRP 1.5. UA normal. Head CT negative for acute findings and no focal deficits so CVA unlikely. MRI unable to be performed due to implant. Seizure considered. EEG performed which was non-specific; showed abnormal findings suggesting metabolic encephalopathy or postictal state. No evidence of paroxysmal activity noted. TSH, B12, folate, ammonia wnl. He has been unresponsive since 03/23/20. (3) Positive blood culture: Code(s): R78.81 - Bacteremia Status: Acute Assessment and Plan: 1/2 bottles showed growth of 2 strains of coagulase negative staphylococcus. Suspect this is secondary to contamination. He has no additional signs or symptoms to suggest underlying infection. He remains afebrile. UA normal. Chest x-ray unremarkable. No cutaneous wounds or openings. No leukocytosis. CRP 1.5. He was started on broad-spectrum antibiotics for 3 days for consideration of infectious etiology for encephalopathy with no improvement, making infection unlikely. IV vancomycin and aztreonam discontinued on 03/26 (4) Elevated troponin: Code(s): R77.8 - Other specified abnormalities of plasma proteins Status: Acute Assessment and Plan: Troponins elevated on presentation with peak at 0.095 and subsequent downward trend. Etiology unclear. Seizure considered and this may have accounted for mild troponin elevation, however CK was wnl so less likely. EKG unremarkable. ACS not suspected. (5) Hypertension: Qualifiers: Hypertension type: unspecified Qualified Code(s): I10 - Essential (primary) hypertension Code(s): I10 - Essential (primary) hypertension Status: Acute Assessment and Plan: BP reviewed and generally well controlled. He is not on any antihypertensive agents. (6) Dehydration: Code(s): E86.0 - Dehydration Status: Acute Assessment and Plan: Patient appeared dry upon presentation. He had poor PO intake secondary to end-stage dementia. He has not had anything by mouth since admission. Sodium slightly elevated upon presentation, indicating dehydration which resolved with IV fluids. (7) Dementia: Qualifiers: Dementia behavioral disturbance: without behavioral disturbance Dementia type: unspecified type Qualified Code(s): F03.90 - Unspecified dementia without behavioral disturbance Code(s): F03.90 - Unspecified dementia without behavioral disturbance Status: Chronic Assessment and Plan: End-stage (8) Parkinson disease: Code(s): G20 - Parkinson's disease Status: Inactive Assessment and Plan: He is established with movement disorder clinic at [facility]. His son indicates that he has not a
== END 2020-03-28 14:26 | disposition hospice, inpatient (51) | DRG 884 ==
LOC: ANHED 21:48 → ANHIMU 03-24 00:09 → ANH2MED 03-26 10:16 → ANHIMU 04-06 16:10
PROVIDERS: Internal Medicine; Admitting Provider Family Medicine; Emergency Provider Emergency Medicine; PCP Family Medicine Adolescent Medicine; Visit Provider Physician Assistant
DX: F03.90 Unspecified dementia, unspecified severity, without behavioral disturbance, psychotic disturbance, mood disturbance, and anxiety (principal); G93.40 Encephalopathy, unspecified; I10 Essential (primary) hypertension; E86.0 Dehydration; G20 Parkinson's disease; Z20.822 Contact with and (suspected) exposure to COVID-19
CPT/HCPCS: 36415; 36556; 36600; 70450; 71045; 80048; 80053; 80202; 81001; 82140; 82550; 82607; 82728; 82746; 82805; 83605; 83615; 83735; 84443; 84484; 85025; 85027; 85610; 85730; 86140; 87040; 87077; 87186; 92610; 93005; 94002; 95816; 96361; 96365; 96372; 99285; C1751; C9803; J0131; J0360; J1650; J3370; J7030; U0003; U0005

== ENCOUNTER 2020-03-28 14:27 | HOS | payer OTHER, MEDICARE, SELFPAY ==
--- NOTE | 2020-03-28 15:05 | ADMGEN ---
This patient, Santos Leon, was admitted to Medical Room 251-01. Patient/family oriented to hospital policies and general routines including ID bracelet, bed and alarms, visiting hours, pain management, procedures, bathroom and other care routines, personal items, smoking policy, room service/diet, and visiting hours. Information on how to activate the Rapid Response Team has been discussed. Patient/Family are encouraged to report perceived risks to care and to ask questions if they do not understand what they are told or what they should do.
[2020-03-28] MEDS: MORPHINE SULFATE INJ (*CRX) 50 MG in SODIUM CHLORIDE 0.9% IV 95 ML IV CONT (15:45)
[2020-03-28] MEDS: MORPHINE SULFATE (*CRX) 2 MG/ML INJ IV PUSH (15:45)
[2020-03-28] MEDS: FUROSEMIDE INJ 40 MG/4 ML VIAL 20 MG IV PUSH (16:23)
[2020-03-28] MEDS: MORPHINE SULFATE (*CRX) 2 MG/ML INJ 1 MG IV PUSH (20:39)
--- NOTE | 2020-03-30 06:58 | PM.DDS ---
Discharge Sum: Prov Provider Primary care physician: Fritz Loredo MD Admitting provider: Reese Boone MD Attending physician on admission: Madi Boone Discharge Sum: Diag PCOD End-stage dementia Encephalopathy Parkinson disease Discharge Sum: Summary Date and Time Date of admission: 03/28/20 14:27 Date of : 03/29/20 Time of : 00:45 Summary Details: Date of admission: 03/28/20 Date of : 03/29/20 Santos Leon is an 84-year-old male with history of severe dementia and Parkinson disease who was admitted to inpatient hospice with [facility] on 03/28/20 due to prolonged unresponsiveness. I evaluated the patient on 03/28/20 and discharged him from inpatient care to hospice. He passed peacefully early on 03/29/20 with his family present at the bedside. Additional Data Confirmation of as documented by pronouncing clinician: no pulse, no respirations and no heart sounds Family: at bedside Attending/PCP notified?: Yes Attending physician: Aura Rainey PA-C Was code activated?: No Hospice patient?: Yes
== END 2020-03-29 00:45 | disposition expired | DRG 951 ==
PROVIDERS: Admitting Provider Internal Medicine; PCP Family Medicine Adolescent Medicine; Visit Provider Physician Assistant
DX: Z51.5 Encounter for palliative care (principal); G93.49 Other encephalopathy; G20 Parkinson's disease; F02.80 Dementia in other diseases classified elsewhere, unspecified severity, without behavioral disturbance, psychotic disturbance, mood disturbance, and anxiety
CPT/HCPCS: A9270; J1940; J2270